=== PATIENT | male | born 1955 | race Caucasian/White ===

== ENCOUNTER 2018-09-23 13:15 | Inpatient (IN) | payer OTHER ==
[2018-09-23] MEDS ORDERED: NS 1,000 ML IV ONE (14:35)
--- NOTE | 2018-09-23 14:35 | EDPHY ---
H & P Time Seen by Provider: 09/23/18 14:32 HPI/ROS: Chief complaint. Can't walk HPI. 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 He presents with fever and chills that began 2 days ago. He does not think he had any of his typical toxins. But 2 evenings ago he developed fever and chills and dizziness. He had some mid abdominal pain that is described as crampy. He has had vomiting and diarrhea. He feels that somewhat hard to take a deep breath and is slightly short of breath. No chest pain. He tells me his hands and feet are numb for a day and he has a hard time walking because he is quite lightheaded. He flew back from [place] on Thursday. 2 days ago on Thursday he had Mohs surgery to his right face and right leg. No cough. He has had fever and chills. No urinary symptoms though decreased urination. He notes his skin has been bright red and was worse yesterday but continues today. ROS 10 systems were reviewed and negative with the exception of the elements mentioned in the history of present illness Past Medical/Surgical History: Anaphylaxis Social History: , nonsmoker, no alcohol Smoking Status: Never smoked Physical Exam: General Appearance: Alert well-developed male moderate distress vital signs show temp 37.4 degrees, heart rate 101, blood pressure 89/62 Eyes: Pupils equal and round no pallor or injection. ENT, tympanic membranes normal. Pharynx without injection. Mucous membranes are dry Respiratory: There are no retractions, lungs are clear to auscultation. Cardiovascular: Regular rate and rhythm. Tachycardia Gastrointestinal: Abdomen is soft with tenderness in the periumbilical area. No masses. Normal bowel sounds Neurological: Awake and alert, sensory and motor exams grossly normal. Skin: Skin is diffusely erythematous. The area of the Mohs procedure on his right face and right welch do not appear to be infected. Musculoskeletal: Neck is supple nontender. Extremities symmetrical, full range of motion. Psychiatric: Patient is oriented X 3, there is no agitation. Constitutional: Initial Vital Signs Temperature (C) 37.4 C 09/23/18 13:22 Heart Rate 101 H 09/23/18 13:22 Respiratory Rate 16 09/23/18 13:22 Blood Pressure 89/62 L 09/23/18 13:22 O2 Sat (%) 94 09/23/18 13:22 O2 Delivery Mode Room Air Allergies/Adverse Reactions: bacitracin [From Neosporin] Allergy (Intermediate, Verified 01/07/12 10:01) Rash bacitracin zinc [From Neosporin] Allergy (Intermediate, Verified 01/07/12 10:01) Rash benzalkonium chloride [From Neosporin] Allergy (Intermediate, Verified 01/07/12 10:01) Rash gramicidin D [From Neosporin] Allergy (Intermediate, Verified 01/07/12 10:01) Rash hydrocortisone [From Neosporin] Allergy (Intermediate, Verified 01/07/12 10:01) Rash neomycin sulfate [From Neosporin] Allergy (Intermediate, Verified 01/07/12 10:01 ) Rash polymyxin B [From Neosporin] Allergy (Intermediate, Verified 01/07/12 10:01) Rash polymyxin B sulfate [From Neosporin] Allergy (Intermediate, Verified 01/07/12 10 :01) Rash POISON KAMILAH Allergy (Severe, Uncoded 01/07/12 10:03) BOOKER SKIN SHELLFISH Allergy (Severe, Uncoded 01/07/12 10:36) PASSED OUT Home Medications: Medication Instructions Recorded Chlorpheniramine Maleate 12 mg PO DAILY10 PRN 01/07/12 [Chlor-Trimeton Allergy] Diclofenac Sodium [Voltaren 50 MG 50 mg PO BID 01/07/12 (RX)] Lactobacillus Acidophilus 1 each PO BID 01/07/12 [Acidophilus] Pharmacy Completed 01/07/12 01/07/12 ZOLPIDEM TARTRATE [Ambien CR 12.5 12.5 mg PO HS 01/07/12 mg] Medical Decision Making - Diagnostics EKG Interpretation: EKG interpreted by me shows normal sinus rhythm normal interval and axis. QRS is normal there is no significant ST elevation or depression. No arrhythmia. The rate is 89 Imaging Results: Imaging Impressions Chest X-Ray 09/23/18 14:36 Impression: Mild airways disease and minimal atelectasis. No pneumonia or effusion. Chest x-ray interpreted by me shows no pneumonia Procedures: IV normal saline. Sepsis workup ED Course/Re-evaluation: Lactate is elevated at 3.1. Severe sepsis was declared. Patient was given 30 milliliters/kilogram fluid bolus. He is given IV Rocephin after cultures. Blood pressure initially low at 80 9/62 has come up with IV fluids. Last pressure was 119/66. Patient and his and I discussed imaging and lab results. We discussed treatment plan including recommendation for admission. He expresses understanding and agreement I consulted discussed the case with , hospitalist, who agrees to the admission CT scan of his abdomen because of abdominal pain is ordered and results are pending Differential Diagnosis: Patient has sepsis with elevated lactate. Initially hypotensive but with fluid bolus his pressure does come up. His skin is quite red and I am not sure of the cause of this. The recent surgery on his face and leg do not appear to be infected or the source of infection. I considered pneumonia as an etiology but his chest x-ray appears normal. He does have UTI and likely the sepsis is due to urosepsis. He has had previous anaphylaxis with sea food products but he has not had sea food. He has had significant vomiting and diarrhea and has GI pathogen panel pending. He will be admitted to the ICU Critical Care Time: Critical care time exclusive procedures 40 min - Data Points Laboratory Results: Laboratory Results 09/23/18 13:50 09/23/18 13:50 09/23/18 09/23/18 09/23/18 15:41 14:52 14:51 WBC RBC Hgb Hct MCV MCH MCHC RDW Plt Count MPV Neut % (Auto) Lymph % (Auto) [place] % (Auto) Eos % (Auto) Baso % (Auto) Nucleat RBC Rel Count Absolute Neuts (auto) Absolute Lymphs (auto) Absolute Monos (auto) Absolute Eos (auto) Absolute Basos (auto) Absolute Nucleated RBC Immature Gran % Seg Neutrophils % Band Neutrophils % Lymphocytes % Monocytes % Eosinophils % Basophils % Metamyelocytes % Myelocytes % Promyelocytes % Blast Cells % Immature Gran # Absolute Seg Neuts Absolute Band Neuts Absolute Lymphocytes Absolute Monocytes Absolute Eosinophils Absolute Basophils Absolute Metamyelocyte Absolute Myelocytes Absolute Promyelocytes Absolute Plasma Cells Nucleated RBCs Absolute Blast Cells Plasma Cells % Platelet Estimate Acanthocytes (Spur) PT INR APTT VBG Lactic Acid 3.1 mmol/L H mmol/L (0.7-2.1) Sodium Potassium Chloride Carbon Dioxide Anion Gap BUN Creatinine Estimated GFR Glucose Calcium Total Bilirubin Conjugated Bilirubin Unconjugated Bilirubin AST ALT Alkaline Phosphatase POC Troponin I 0.01 ng/mL ng/mL (0.00-0.08) Total Protein Albumin Urine Color [place] Urine Appearance MODERATELY TURBID Urine pH 5.0 (5.0-7.5) Ur Specific [place] 1.021 (1.002-1.030) Urine Protein 1+ H (NEGATIVE) Urine Ketones NEGATIVE (NEGATIVE) Urine Blood 1+ H (NEGATIVE) Urine Nitrate NEGATIVE (NEGATIVE) Urine Bilirubin NEGATIVE (NEGATIVE) Urine Urobilinogen NEGATIVE EU EU (0.2-1.0) Ur Leukocyte Esterase 1+ H (NEGATIVE) Urine RBC 3-5 /hpf H /hpf (0-3) Urine WBC 50-182 /hpf H /hpf (0-3) Ur Epithelial Cells TRACE /lpf /lpf (NONE-1+) Urine Bacteria TRACE /hpf H /hpf (NONE SEEN) Hyaline Casts 25-50 /lpf H /lpf (0-1) Urine Mucus 3+ /lpf H /lpf (NONE-1+) Urine Glucose NEGATIVE (NEGATIVE) 09/23/18 09/23/18 09/23/18 13:50 13:50 13:50 WBC RBC Hgb Hct MCV MCH MCHC RDW Plt Count MPV Neut % (Auto) Lymph % (Auto) [place] % (Auto) Eos % (Auto) Baso % (Auto) Nucleat RBC Rel Count Absolute Neuts (auto) Absolute Lymphs (auto) Absolute Monos (auto) Absolute Eos (auto) Absolute Basos (auto) Absolute Nucleated RBC Immature Gran % Seg Neutrophils % Band Neutrophils % Lymphocytes % Monocytes % Eosinophils % Basophils % Metamyelocytes % Myelocytes % Promyelocytes % Blast Cells % Immature Gran # Absolute Seg Neuts Absolute Band Neuts Absolute Lymphocytes Absolute Monocytes Absolute Eosinophils Absolute Basophils Absolute Metamyelocyte Absolute Myelocytes Absolute Promyelocytes Absolute Plasma Cells Nucleated RBCs Absolute Blast Cells Plasma Cells % Platelet Estimate Acanthocytes (Spur) PT 17.0 SEC H SEC (12.0-15.0) INR 1.45 H (0.83-1.16) APTT 36.9 SEC SEC (23.0-38.0) VBG Lactic Acid Sodium 129 mEq/L L mEq/L (135-145) Potassium 4.0 mEq/L mEq/L (3.5-5.2) Chloride 95 mEq/L L mEq/L (97-110) Carbon Dioxide 20 mEq/l L mEq/l (22-31) Anion Gap 14 mEq/L mEq/L (6-14) BUN 40 mg/dL H mg/dL (7-23) Creatinine 1.6 mg/dL H mg/dL (0.7-1.3) Estimated GFR 44 Glucose 155 mg/dL H mg/dL (70-100) Calcium 8.3 mg/dL L mg/dL (8.5-10.4) Total Bilirubin 3.4 mg/dL H mg/dL (0.1-1.4) Conjugated Bilirubin 2.1 mg/dL H mg/dL (0.0-0.5) Unconjugated Bilirubin 1.3 mg/dL H mg/dL (0.0-1.1) AST 96 IU/L H IU/L (17-59) ALT 145 IU/L H IU/L (21-72) Alkaline Phosphatase 66 IU/L IU/L (38-126) POC Troponin I Total Protein 6.1 g/dL L g/dL (6.3-8.2) Albumin 3.5 g/dL g/dL (3.5-5.0) Urine Color Urine Appearance Urine pH Ur Specific [place] Urine Protein Urine Ketones Urine Blood Urine Nitrate Urine Bilirubin Urine Urobilinogen Ur Leukocyte Esterase Urine RBC Urine WBC Ur Epithelial Cells Urine Bacteria Hyaline Casts Urine Mucus Urine Glucose 09/23/18 13:50 WBC 14.69 10^3/uL H 10^3/uL (3.80-9.50) RBC 5.03 10^6/uL 10^6/uL (4.40-6.38) Hgb 15.8 g/dL g/dL (13.7-17.5) Hct 45.1 % % (40.0-51.0) MCV 89.7 fL fL (81.5-99.8) MCH 31.4 pg pg (27.9-34.1) MCHC 35.0 g/dL g/dL (32.4-36.7) RDW 13.2 % % (11.5-15.2) Plt Count 140 10^3/uL L 10^3/uL (150-400) MPV 10.7 fL fL (8.7-11.7) Neut % (Auto) Not Reported Lymph % (Auto) Not Reported [place] % (Auto) Not Reported Eos % (Auto) Not Reported Baso % (Auto) Not Reported Nucleat RBC Rel Count Not Reported Absolute Neuts (auto) Not Reported Absolute Lymphs (auto) Not Reported Absolute Monos (auto) Not Reported Absolute Eos (auto) Not Reported Absolute Basos (auto) Not Reported Absolute Nucleated RBC Not Reported Immature Gran % Not Reported Seg Neutrophils % 71.4 % % Band Neutrophils % 21.4 % % Lymphocytes % 2.1 % % Monocytes % 2.0 % % Eosinophils % 3.1 % % Basophils % 0.0 % % Metamyelocytes % 0.0 % % Myelocytes % 0.0 % % Promyelocytes % 0.0 % % Blast Cells % 0.0 % % Immature Gran # Not Reported Absolute Seg Neuts 10.49 10^3/uL H 10^3/uL (1.70-6.50) Absolute Band Neuts 3.14 10^3/uL H 10^3/uL (0.00-0.70) Absolute Lymphocytes 0.31 10^3/uL L 10^3/uL (1.00-3.00) Absolute Monocytes 0.29 10^3/uL L 10^3/uL (0.30-0.80) Absolute Eosinophils 0.46 10^3/uL H 10^3/uL (0.03-0.40) Absolute Basophils 0.00 10^3/uL L 10^3/uL (0.02-0.10) Absolute Metamyelocyte 0.00 10^3/mL 10^3/mL (0.00-0.00) Absolute Myelocytes 0.00 10^3/mL 10^3/mL (0.00-0.00) Absolute Promyelocytes 0.00 10^3/uL 10^3/uL (0.00-0.00) Absolute Plasma Cells 0.00 10^3/uL 10^3/uL (0.00-0.00) Nucleated RBCs 0 /100 WBC /100 WBC (0-0) Absolute Blast Cells 0.00 10^3/uL 10^3/uL (0.00-0.00) Plasma Cells % 0.0 % % Platelet Estimate ADEQUATE (ADEQ) Acanthocytes (Spur) 1+ H PT INR APTT VBG Lactic Acid Sodium Potassium Chloride Carbon Dioxide Anion Gap BUN Creatinine Estimated GFR Glucose Calcium Total Bilirubin Conjugated Bilirubin Unconjugated Bilirubin AST ALT Alkaline Phosphatase POC Troponin I Total Protein Albumin Urine Color Urine Appearance Urine pH Ur Specific [place] Urine Protein Urine Ketones Urine Blood Urine Nitrate Urine Bilirubin Urine Urobilinogen Ur Leukocyte Esterase Urine RBC Urine WBC Ur Epithelial Cells Urine Bacteria Hyaline Casts Urine Mucus Urine Glucose Medications Given: Discontinued Medications Sodium Chloride (Ns) 1,000 mls @ 0 mls/hr IV EDNOW ONE; Wide Open PRN Reason: Protocol Stop: 09/23/18 14:36 Last Admin: 09/23/18 15:14 Dose: 1,000 mls Sodium Chloride (Ns) 2,400 mls @ 4,800 mls/hr 30 ml/kg infuse over 30 min ( 2400 ml) IV EDNOW ONE PRN Reason: Protocol Stop: 09/23/18 15:52 Last Admin: 09/23/18 15:56 Dose: 2,400 mls Ceftriaxone Sodium/Dextrose (Rocephin 1 Gm (Premix)) 50 mls @ 100 mls/hr IV EDNOW ONE PRN Reason: Protocol Stop: 09/23/18 15:58 Last Admin: 09/23/18 15:44 Dose: 50 mls Point of Care Test Results: Chemistry 09/23/18 14:52 POC Troponin I 0.01 ng/mL ng/mL (0.00-0.08) Departure - Departure Disposition: [facility] Inpatient Acute Clinical Impression: Urosepsis Condition: Fair
[2018-09-23 14:54] LABS: INR 1.45 (0.83-1.16)
[2018-09-23 15:19] LABS: PLATELET COUNT 140 10^3/uL (150-400)
[2018-09-23] MEDS ORDERED: NS 2,400 ML IV ONE (15:23)
[2018-09-23] MEDS ORDERED: IOPAMIDOL (ISOVUE-300) 100 ML BTL ONE (15:54)
[2018-09-23] MEDS ORDERED: ONDANSETRON DISINTEGRATING 4 MG TAB PO PRN (17:20)
[2018-09-23] MEDS ORDERED: ONDANSETRON 4 MG/2 ML VIAL IVP PRN (17:20)
--- NOTE | 2018-09-23 18:14 | GHP ---
[f rep st] HISTORY AND PHYSICAL DATE OF ADMISSION: 09/23/2018 CHIEF COMPLAINT: Fevers, nausea, vomiting, diarrhea. HISTORY OF PRESENT ILLNESS: This is a 63-year-old man, who had Mohs surgery on Thursday. He tells me he did not receive any antibiotics, even prophylactic, around the surgery. This was for a basal cell carcinoma. Thursday night, he tells me he had significant chills. He also started to have severe nausea, vomiting, and diarrhea. He had recently traveled, though notes no other sick contacts with people with GI illnesses. He vomited approximately 12 times, nonbloody. Diarrhea has been similar. He has some lower abdominal pain. He has never been told that he has a large prostate, has never had any urinary retention. He tells me that his urine output has been low recently. He has no dysuria when he does urinate. He has no flank tenderness. PAST MEDICAL/SURGICAL HISTORY: 1. Basal cell carcinoma status post Mohs surgery. 2. History of anaphylaxis to seafood. He has not had a recurrence for a very long time. 3. Dental surgery. MEDICATIONS: Please see medication reconciliation. ALLERGIES: Bacitracin, gramicidin, Neosporin, and shellfish are noted. FAMILY HISTORY: Reviewed and noncontributory. SOCIAL HISTORY: He is . He drinks about 2 drinks a day. He does not smoke. REVIEW OF SYSTEMS: 10-point review of systems is conducted, and is negative except per HPI. PHYSICAL EXAM: VITAL SIGNS: Blood pressure 127/79, heart rate 80, respiration rate 22, saturating 96% on room air. Temperature is 37.4. GENERAL: Mr. Felipe is a pleasant man, who is resting comfortably. HEENT: Shows him to be normocephalic, atraumatic. CARDIOVASCULAR: Shows a regular rate and rhythm. No murmurs, rubs, or gallops. PULMONARY: Lungs clear to auscultation bilaterally. ABDOMEN: Shows him to have some suprapubic tenderness to palpation. SKIN: Shows him to have some significant erythema, which seems to be waxing and waning a little bit, primarily on his trunk; however, extending into his upper thighs. He has some erythematous papules on his thighs as well. The soles of his feet and palms of his hand are somewhat bluish and dusky. He is slightly cold. This is bilateral and symmetric. : Shows no [place]. NEUROLOGIC: Shows him to be alert and oriented x3. He is moving all extremities. PSYCHIATRIC: Shows normal mood and affect. LABORATORY: White count is 14.6, platelets are 140. INR is 1.4. Lactate is 2.4. Sodium 129, creatinine 1.6. Total bilirubin is 3.4, AST is 96, ALT is 145. Urinalysis shows 1+ blood, 1+ leukocyte esterase, 50 to 182 whites, trace bacteria. IMAGIN. Discussed Dr. Guo. Will admit to step-down unit. 2. I personally viewed and interpreted his CT scan. This, to me, is most notable for significant bladder distention. 3. I personally viewed and interpreted his EKG. This shows sinus rhythm. There is nothing acute. 4. I personally viewed and interpreted his chest x-ray. This shows nothing acute. ASSESSMENT/PLAN: 63-year-old man presents with recent Mohs surgery, who presents with sepsis, presumed urinary tract infection. Also notable is erythematous rash primarily truncal, as well as dusky palms and soles. 1. Severe sepsis with elevated lactate. Hypotension on admission, which has now normalized. Will monitor him in the step-down unit. He has received appropriate fluid bolus. His lactate has trended down. Will continue IV fluids. Presumed source at this point is urinary. 2. Urinary tract infection with abnormal urinalysis. Evidence of retention on CT scan and suprapubic tenderness. Has no previous cultures. Agree with Rocephin. Follow up his urine and blood culture. 3. Nausea, vomiting, diarrhea. Unclear if this is related to his urinary tract infection or separate. Gastrointestinal panel has been ordered. Clostridium difficile is a consideration for the cause of his sepsis as well. Will empirically place him on precautions for now while we await a gastrointestinal panel. 4. Erythematous rash with papules on his upper thighs. This seems to be waxing and waning. This may be viral mediated from a gastrointestinal illness. For now will monitor closely. 5. Dusky appearing palm soles and soles of his feet. Not consistent with any sort of arterial occlusion given the bilateral and symmetric upper extremity and lower extremity nature of this. Perhaps he has been hypotensive for some time. This may be a lingering effect. He is currently normotensive. He does have some mild symmetric neurologic symptoms described as tingling and paresthesias associated with this. Will follow closely for now in the step- down unit. 6. Recent Mohs surgery. Does not appear to be infected. 7. Elevated liver function tests. Suspect that this is due to sepsis. Final interpretation of his CT scan by Radiology is pending. Will follow up on this to assure that there is no gallbladder pathology. 8. Acute kidney injury. This is prerenal due to sepsis. Will follow with hydration. He did receive IV contrast, which was appropriate given his presentation and abnormal LFTs with fairly significant acute illness. 9. Venous thromboembolism risk is [id number]. Will give him Lovenox. 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 Does not seem related to current presentation /[id number]/MODL MTDD
[2018-09-23] MEDS: NS 1,000 ML IV SCH (18:38)
--- NOTE | 2018-09-23 19:41 | CPEKG ---
Test Reason : OPEN Blood Pressure : / mmHG Vent. Rate : 089 BPM Atrial Rate : 090 BPM P-R Int : 173 ms QRS Dur : 090 ms QT Int : 356 ms P-R-T Axes : 084 073 049 degrees QTc Int : 434 ms Sinus rhythm Probable left atrial enlargement Confirmed by Collin Guo ([id number]) on 09/23/2018 7:40:59 PM Referred By: COLLIN GUO Confirmed By:Collin Guo
[2018-09-23] MEDS: ACETAMINOPHEN 325 MG TAB PO PRN (21:00)
[2018-09-23] MEDS: ZOLPIDEM TARTRATE 12.5 MG PO PRN (21:01)
[2018-09-24 05:44] LABS: PLATELET COUNT 109 10^3/uL (150-400)
--- NOTE | 2018-09-24 08:42 | PDMN ---
Medical Necessity Medical necessity: Pt meets inpt criteria per MD order and MCG M-160, Sepsis and Other Febrile Illness, without Focal Infection, hemodynamic instability w/ persistent tachycardia (HR this AM 106), resp 24, presumed UTI, urine and bl cultures pending. 63 y/o w/recent hx of Mohs surgery on 09/21/18 for basal cell carcinoma presented to ED w/severe N/V/D and chills, admitted w/severe sepsis, presumed UTI, and MARYANNE. SDU care, anticipate>2MN for ongoing eval/management of above.
[2018-09-24] MEDS: ENOXAPARIN 40 MG/0.4 ML SYR SC SCH (10:08)
[2018-09-24] MEDS ORDERED: POTASSIUM CL 20 MEQ TAB PO ONE (10:12)
[2018-09-24] MEDS: NS 1,000 ML IV SCH (10:19)
--- NOTE | 2018-09-24 11:49 | ASMTCASEMG ---
Living Arrangements What is your living Answers: With Spouse arrangement? Who do you live with? Type Of Residence What kind of residence do Answers: House you live in? Discharge Plan Comments Coordination Status Comments Notes: Patient is a 63yo male who recently had MOHS surgery and presents with sepsis. Patient did not receive any antibiotics prior to his surgery by his report. Patient has been admitted for severe sepsis with elevated lactate, UTI, nausea, vomiting, diarrhea, erthematous rash with papules, dusky appearing palm soles and soles of his feet, elevated liver function tests, acute kidney injury, venous thromboembolism and mesenteric panniculitis and enlarged lymph node. PT has been ordered. D/C plan TBD. CM will follow Date Signed: 09/24/2018 11:48 AM Electronically Signed By:Zee Drew LCSW
--- NOTE | 2018-09-24 13:26 | HOSPPROG ---
Hospitalist Progress Note Assessment/Plan: 63yo M recently had Mohs surgery presents with sepsis likely d/t urinary infection. #Severe sepsis: Physiology improving - Cont IVF, follow blood cultures #Urinary tract infection: No pyelo on imaging or clinically - Continue ceftriaxone, awaiting urine culture #MARYANNE: Resolving with fluid resuscitation. #Hyponatremia: Persistent although I suspect will get better with isotonic fluids. Recheck in AM. #Thrombocytopenia: Likely consumptive in setting of sepsis. Not bleeding. Monitor. #Vomiting, diarrhea: GI PCR negative. ? related to infection for concomitant viral illness. #Mild coagulopathy, abnormal LFTs: Due to sepsis. #Erythematous rash: Improving. Possibly reaction from infection. #Recent Mohs surgery: Does not appear infected. #Mesenteric panniculitis and enlarged lymph node: Needs repeat CT in 6 months. VTE ppx: LMWH Code: full Dispo: Remain inpatient, transfer to floor Subjective: Doing much better than yesterday. Hands/feet less blue. Diarrhea and vomiting significantly better. Tolerating some PO. Lower abdominal pain subsiding. Objective: Vital Signs Temp Pulse Resp BP Pulse Ox 36.7 C 96 30 H 91/64 L 97 09/24/18 07:30 09/24/18 10:00 09/24/18 10:00 09/24/18 10:00 09/24/18 10:00 Microbiology 09/23/18 18:00 Gastrointestinal Tract Panel (PCR) - Final Stool No Organism Detected By Pcr Laboratory Results 09/24/18 05:01 09/24/18 05:01 09/23/18 09/24/18 09/25/18 05:59 05:59 05:59 Intake Total 4750 Output Total 1750 300 Balance 3000 -300 PT 17.0 SEC (12.0-15.0) H 09/23/18 13:50 INR 1.45 (0.83-1.16) H 09/23/18 13:50 - Physical Exam Constitutional: no apparent distress, appears nourished, not in pain Eyes: PERRL, anicteric sclera, EOMI Ears, Nose, Mouth, Throat: moist mucous membranes, hearing normal, ears appear normal, no oral mucosal ulcers Cardiovascular: regular rate and rhythym, no murmur, rub, or gallop, No edema Respiratory: no respiratory distress, no rales or rhonchi, clear to auscultation Gastrointestinal: normoactive bowel sounds, soft, non-tender abdomen, no palpable masses Genitourinary: no bladder fullness, no bladder tenderness, no renal bruits Skin: other (healing wound on right cheek from Mohs surgery) Musculoskeletal: full muscle strength, no muscle tenderness, normal joint ROM Neurologic: AAOx3, sensation intact bilaterally Psychiatric: interacting appropriately, not anxious, not encephalopathic, thought process linear ICD10 Worksheet Patient Problems: Problems Problem Status Onset Sepsis Acute - ICD10 Problem Qualifiers (1) Sepsis
[2018-09-24] MEDS ORDERED: NS 500 ML IV ONE (15:47)
[2018-09-24] MEDS ORDERED: LORazepam 2 MG/ML INJ IVP PRN ×2 (16:32→17:11)
[2018-09-24] MEDS ORDERED: FLUMAZENIL 0.5 MG/5 ML MDV IVP PRN (17:11)
[2018-09-24] MEDS: ACETAMINOPHEN 325 MG TAB PO PRN (20:30)
[2018-09-24] MEDS: ZOLPIDEM TARTRATE 12.5 MG PO PRN (20:31)
[2018-09-25] MEDS: ENOXAPARIN 40 MG/0.4 ML SYR SC SCH (08:26)
[2018-09-25] MEDS ORDERED: THIAMINE HCL 100 MG TAB PO SCH (09:00)
[2018-09-25] MEDS ORDERED: THIAMINE HCL 500 MG in NS 100 ML IV SCH (09:00)
[2018-09-25 11:49] VITALS: BP 121/75
--- NOTE | 2018-09-25 14:11 | PDDCSUM ---
Discharge Summary Discharge Summary: Date of Admission: 09/23/2018 Date of Discharge: 09/25/2018 Studies: abdominal CT Discharge Diagnoses: 1. Severe sepsis 2. Suspected urinary tract infection 3. Acute kidney injury, resolved 4. 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 Thrombocytopenia, consumptive from sepsis 6. Vomiting and diarrhea, resolved 7. Mild coagulopathy and abnormal LFTs due to sepsis 8. Erythroderma 9. 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 H/o right hip total arthroplasty Brief Hospital Course: 63yo M recently had Mohs surgery presented with chills, lower abdominal pain, vomiting, and diarrhea. He was meeting severe sepsis criteria on arrival. He had fluid responsive hypotension. His urinalysis was infected appearing. An abdominal CT showed an enlarged bladder, trace free fluid in the pelvis, but no abscess, obstructing renal calculi, or e/o pyelonephritis. He was started on ceftriaxone with significant improvement. His renal function, LFTs, and WBC all improved. Interestingly, his urine culture did not grow any pathogenic bacteria. Blood cultures also remained negative. Procalcitonin was elevated at 13. GI PCR was negative. Overall, it was not entirely clear what lead to his septic physiology but I suspect this was a urinary tract infection as he had no other localizing source of infection. Of note, he did also have a fleeting erythematous rash on his trunk and thighs that improved over the course of this hospitalization. He was discharged to complete a course of oral antibiotics. Lastly, his sodium level did not improve with fluids and remained at 129. 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 I placed him on a 1.5L fluid restriction at time of discharge. Medications: Please refer to EMR for complete list. I wrote a prescription for cefdinir 300mg BID #8. Otherwise no medication changes. Follow Up Plan: 1. PCP (Olaf Gaitan) in 5-7 days after completion of antibiotics. 2. CBC and BMP in 3-5 days to monitor platelets and Na level 3. Repeat abdominal CT in 6 months to monitor mesenteric panniculitis and enlarged lymph node Physical Exam: Vitals reviewed, afebrile. Alert and oriented, rrr, lungs clear, abdomen soft and nt, no leg edema, no oral ulcers, healing right cheek lesion from recent surgery.
--- NOTE | 2018-09-25 14:36 | ASMTLACE ---
HUDSONE Length of stay for Answers: 2 days current admission Acuity / Level of Answers: Yes Care: Did the patient have an inpatient admission? Comorbidities - select Answers: Other Notes: [facility], sepsis # of Emergency department Answers: 1-2 visits in the last 6 months Score: 7 Date Signed: 09/25/2018 02:36 PM Electronically Signed By:ROLA Jim
--- NOTE | 2018-09-25 14:39 | ASDISCHSUM ---
Discharge Information Plan Status:Home with No Needs Medically Cleared to Leave:09/25/2018 Discharge Date:09/25/2018 CM D/C Disposition:Home, Routine, Self-Care ADT D/C Disposition:Home, Routine, Self-Care Projected Discharge Date:09/25/2018 Transportation at D/C:Family Discharge Delay Reason: Follow-Up Date:09/25/2018 Discharge Slot: Final Diagnosis: Placement Information Patient Contact Information Contact Name:BUSTER Relationship: Address:[address] Work Phone: City:[place] [facility] Phone: State/Zip Code:[place] [address] Email: Financial Information Financial Class:HMO and PPO Plans Primary Plan Desc:[facility] Primary Plan Number:[id number] Secondary Plan Desc: Secondary Plan Number: Assessment Information LACE LACE Length of stay for Answers: 2 days current admission Acuity / Level of Answers: Yes Care: Did the patient have an inpatient admission? Comorbidities - select Answers: Other Notes: recent [facility] all that apply surgery, sepsis # of Emergency department Answers: 1-2 visits in the last 6 months Score: 7 Date Signed: 09/25/2018 02:36 PM Electronically Signed By:ROLA Jim [facility] Initial CM Assessment Living Arrangements What is your living Answers: With Spouse arrangement? Who do you live with? Type Of Residence What kind of residence do Answers: House you live in? Discharge Plan Comments Coordination Status Comments Notes: Patient is a 63yo male who recently had MOHS surgery and presents with sepsis. Patient did not receive any antibiotics prior to his surgery by his report. Patient has been admitted for severe sepsis with elevated lactate, UTI, nausea, vomiting, diarrhea, erthematous rash with papules, dusky appearing palm soles and soles of his feet, elevated liver function tests, acute kidney injury, venous thromboembolism and mesenteric panniculitis and enlarged lymph node. PT has been ordered. D/C plan TBD. CM will follow Date Signed: 09/24/2018 11:48 AM Electronically Signed By:Zee Drew LCSW Case Management Discharge Plan Note Case Management Discharge Discharge Order Complete? Answers: Yes Patient to Obtain Answers: via Family Medications Transportation Arranged Answers: Family/Friends Discharge Comments Notes: Pt has been medically cleared to d/c today. He is going home with his and has no CM needs. Date Signed: 09/25/2018 02:38 PM Electronically Signed By:ROLA Jim Intervention Information
== END 2018-09-25 15:21 | disposition home or self-care (01) | DRG 872 ==
LOC: F2N 16:54 → F3E 09-24 18:29
PROVIDERS: ADMIT Student in an Organized Health Care Education/Training Program; ATTEND Student in an Organized Health Care Education/Training Program
DX: A41.9 Sepsis, unspecified organism (principal); N39.0 Urinary tract infection, site not specified; E22.2 Syndrome of inappropriate secretion of antidiuretic hormone; D68.8 Other specified coagulation defects; K65.4 Sclerosing mesenteritis; N17.9 Acute kidney failure, unspecified; E86.0 Dehydration; R65.20 Severe sepsis without septic shock; D69.59 Other secondary thrombocytopenia; L53.9 Erythematous condition, unspecified; Z96.641 Presence of right artificial hip joint; Z85.820 Personal history of malignant melanoma of skin
CPT/HCPCS: 84484-ER; 96365; 97161-GP; J0696; J1200; J1650; J2060; Q9967